=== PATIENT | female | born 1995 | race American Indian/Alaskan Native ===

== ENCOUNTER 2017-07-02 21:18 | Emergency (ER) | payer SELFPAY ==
[2017-07-02 21:48] VITALS: BP 105/55
[2017-07-02 22:30] LABS: Basophils % (Auto) 0.4 % (0.0-1.8); Eosinophils % (Auto) 1.6 % (0.0-4.3); Hemoglobin 11.1 gm/dl (10.1-14.3); Mean Corpuscular HGB Conc 35 % (30-34); Mean Corpuscular Hemoglobin 31 pg (28-32); Mean Corpuscular Volume 90 fl (79-97); Platelet Count 239 K/mm3 (140-440); Red Blood Count 3.56 M/mm3 (3.65-5.03); Red Cell Distribution Width 13.5 % (13.2-15.2); White Blood Count 8.2 K/mm3 (4.5-11.0)
[2017-07-02 22:34] LABS: Alanine Aminotransferase 12 units/L (7-56); Albumin 3.5 g/dL (3.9-5); Albumin/Globulin Ratio 1.3 %; Alkaline Phosphatase 37 units/L (35-129); Anion Gap 19 mmol/L; BUN/Creatinine Ratio 14; Blood Urea Nitrogen 7 mg/dL (7-17); Calcium 8.6 mg/dL (8.4-10.2); Carbon Dioxide 20 mmol/L (22-30); Chloride 101.6 mmol/L (98-107); Glucose 94 mg/dL (65-100); Potassium 4.1 mmol/L (3.6-5.0); Sodium 136 mmol/L (137-145); Total Protein 6.3 g/dL (6.3-8.2)
[2017-07-02] MEDS ORDERED: TYLENOL PO ONE (23:22)
[2017-07-02] MEDS ORDERED: TYLENOL ONE (23:24)
--- NOTE | 2017-07-03 01:20 | Ultrasound Report ---
FINAL REPORT EXAM: US OB > = 14 WEEKS FETUS HISTORY: ABD PAIN COMPARISON: None available. TECHNIQUE: Several real-time grayscale and color Doppler images were obtained. Transabdominal exam. FINDINGS: Single live IUP. Estimated gestational age 15 weeks 5 days. Estimated delivery date December 19, 2017. heart rate 129 beats per minute. Placenta location posterior and fundal. No placenta previa demonstrated. Cervix is closed and measures 4 centimeters in length. position variable. BPD 3.1 centimeters 15 weeks 5 days. Head circumference 11.7 centimeters 15 weeks 5 days. Abdominal circumference 9.0 centimeters 15 weeks 1 day. Femoral length 2.0 centimeter 16 weeks 0 days. Three-vessel umbilical cord is demonstrated. Visualized heart, stomach, urinary bladder and cerebral ventricles are grossly unremarkable. Not all structures are well evaluated due to early gestational age. IMPRESSION: Single live IUP. Estimated gestational age 15 weeks 5 days. Estimated delivery date December 19, 2017. No gross or placental abnormality at this time.
== END 2017-07-03 03:00 | disposition left against medical advice (07) ==
LOC: ED 21:18
DX: R10.2 Pelvic and perineal pain (principal); Z53.21 Procedure and treatment not carried out due to patient leaving prior to being seen by health care provider
CPT/HCPCS: 36415; 76805; 80053; 84702; 85025; 86850; 86900; 86901